=== PATIENT | female | born 1940 | race Caucasian/White ===

== ENCOUNTER 2020-12-13 19:31 | Emergency (ER) | payer MEDICARE ==
[~2020-12-13] VITALS: Ht 162.6 cm; Wt 43.6 kg
--- NOTE | 2020-12-13 19:40 | NUR ---
PT PRESENTS TO ER FROM [place], PT STATES SHE FELL AND LANDED ON HER LEFT HIP, PT DENIES HITTING HER HEAD, PT STATES SHE LANDED ON HER LEFT ARM AND HIP BUT HER ARM IS FEELING OK AND THE PAIN IS PRIMARILY IN HER LEFT HIP, FAMILY AT BEDSIDE
[2020-12-13] MEDS ORDERED: HYDROcodone/APAP 5/325 TABLET ONE (20:26)
[2020-12-13] MEDS ORDERED: HYDROcodone/APAP 5/325 TABLET PO ONE (20:30)
[2020-12-13 21:16] VITALS: BP 140/74
--- NOTE | 2020-12-13 21:17 | NUR ---
PT AMBULATED WITH WALKER. REPORTED TO
== END 2020-12-13 22:04 | disposition home or self-care (01) ==
LOC: ED 20:55
DX: S32.512A Fracture of superior rim of left pubis, initial encounter for closed fracture (principal); S32.592A Other specified fracture of left pubis, initial encounter for closed fracture; W01.0XXA Fall on same level from slipping, tripping and stumbling without subsequent striking against object, initial encounter; Y93.89 Activity, other specified; Y92.009 Unspecified place in unspecified non-institutional (private) residence as the place of occurrence of the external cause; Y99.8 Other external cause status
CPT/HCPCS: 99283